=== PATIENT | male | born 1955 | race Caucasian/White ===

== ENCOUNTER 2017-05-14 15:51 | Emergency (ER) | payer OTHER ==
[~2017-05-14] VITALS: Ht 165.1 cm; Wt 68.0 kg
--- NOTE | 2017-05-14 16:00 | NUR ---
PT BIBRA TO ER BED 15. PER REPORT, PT SLEEPING IN THE CISSE W/ POSITIVE ETOH SMELL. PT IS AAOX3, STATES JUST SLEEPING AND MINDING HIS OWN BUSINESS AND NOT CAUSING TROUBLE AND JUST WANT TO BE LEFT ALONE. DENIES ANY TRAUMA. VSS. AWAITING MD SANTORO.
--- NOTE | 2017-05-14 16:10 | NUR ---
DR MG AT BEDSIDE FOR EVAL.
[2017-05-14 16:57] VITALS: BP 146/72
--- NOTE | 2017-05-14 16:57 | NUR ---
PT IS AMBULATORY W/ STEADY GAIT. WANTS TO GO HOME. D/C IN STABLE CONDITION.
== END 2017-05-14 17:04 | disposition home or self-care (01) ==
LOC: ER 16:01
DX: F10.129 Alcohol abuse with intoxication, unspecified (principal)
CPT/HCPCS: 99283; A4606; Z7610